=== PATIENT | male | born 1975 | race Caucasian/White ===

== ENCOUNTER 2019-04-15 18:10 | Emergency (ER) | payer OTHER ==
[~2019-04-15] VITALS: Ht 147.3 cm; Wt 43.1 kg
[2019-04-15 18:47] VITALS: BP 139/92
== END 2019-04-15 18:55 | disposition home or self-care (01) ==
LOC: ER 18:10
DX: S61.401A Unspecified open wound of right hand, initial encounter (principal); Z88.1 Allergy status to other antibiotic agents; X58.XXXA Exposure to other specified factors, initial encounter; Y93.89 Activity, other specified; Y92.89 Other specified places as the place of occurrence of the external cause; Y99.8 Other external cause status